=== PATIENT | female | born 1990 | race African-American/Black ===

== ENCOUNTER 2017-08-15 00:22 | Emergency (ER) | payer MEDICAID, OTHER ==
[~2017-08-15] VITALS: Ht 172.7 cm; Wt 91.0 kg
[2017-08-15] MEDS ORDERED: LORAZEPAM 1MG TABLET PO ONE (01:15)
[2017-08-15] MEDS ORDERED: SODIUM CHLORIDE 0.9% 1,000 ML IV ONE (01:30)
[2017-08-15 01:45] LABS: BASOPHILS % 0.7 % (0.0-2.0); HEMOGLOBIN. 14.6 g/dL (12.0-16.0); LYMPHOCYTES % 25.5 % (20.0-50.0); MEAN CORPUSCULAR HEMOGLOBIN 30.4 pg (28.0-32.0); MEAN CORPUSCULAR VOLUME 87.6 fL (81.0-99.0); MEAN PLATELET VOLUME 7.7 fl (7.4-10.4); MONOCYTES % 6.1 % (2.0-8.0); NEUTROPHILS % 66.7 % (40.0-76.0); PLATELET 289 x1000/uL (130-400); RED CELL DISTRIBUTION WIDTH 13.2 % (11.6-14.6)
[2017-08-15 01:48] LABS: CHLORIDE 106 mEq/L (98-107)
[2017-08-15 01:53] LABS: ETHANOL BLOOD 125 mg/dL
[2017-08-15 02:02] LABS: HCG SCREEN NEGATIVE
[2017-08-15 02:06] LABS: CLARITY URINE CLEAR (CLEAR); COLOR URINE YELLOW (YELLOW); KETONES URINE NEGATIVE (NEGATIVE); LEUKOCYTE ESTERASE URINE NEGATIVE (NEGATIVE); NITRITE URINE NEGATIVE (NEGATIVE); OCCULT BLOOD URINE 1+ (NEGATIVE); PROTEIN URINE NEGATIVE (NEGATIVE); SPECIFIC GRAVITY URINE 1.007 (1.005-1.030); UROBILINOGEN URINE 0.2 E.U./dL (0.2-1.0)
[2017-08-15 02:52] LABS: *AMPHETAMINES SCREEN URINE NEGATIVE (NEGATIVE); *BARBITURATES SCREEN URINE NEGATIVE (NEGATIVE); *BENZODIAZEPINES SCREEN URINE NEGATIVE (NEGATIVE)
[2017-08-15 02:53] LABS: *COCAINE SCREEN URINE NEGATIVE (NEGATIVE); METHADONE URINE SCREEN NEGATIVE (NEGATIVE)
[2017-08-15 02:54] LABS: OPIATES URINE SCREEN NEGATIVE (NEGATIVE)
[2017-08-15 02:55] LABS: CANNABINOID URINE SCREEN NEGATIVE (NEGATIVE); PHENCYCLIDINE URINE SCREEN NEGATIVE (NEGATIVE)
[2017-08-15 09:20] VITALS: BP 133/77
== END 2017-08-15 15:02 | disposition home or self-care (01) ==
LOC: ER 00:37 → EDSEX 00:37 → ER 15:02
DX: R45.851 Suicidal ideations (principal); F32.9 Major depressive disorder, single episode, unspecified; Z91.5 Personal history of self-harm
CPT/HCPCS: 36415; 80053; 80305; 80307; 80329; 81003; 82565; 84520; 84703; 85025; 96360; 99285; G0482; J7030; Z7610

== ENCOUNTER 2018-02-05 06:37 | Emergency (ER) | payer MEDICAID, OTHER ==
[~2018-02-05] VITALS: Ht 175.3 cm; Wt 121.5 kg
[2018-02-05] MEDS ORDERED: SODIUM CHLORIDE 0.9% 1,000 ML IV ONE (09:27)
[2018-02-05] MEDS ORDERED: ONDANSETRON HCL 4MG/2ML INJ IV STA (09:27)
[2018-02-05 10:00] LABS: BASOPHILS % 0.6 % (0.0-2.0); EOSINOPHILS % 0.5 % (0.0-5.0); HEMATOCRIT. 38.4 % (36.0-48.0); HEMOGLOBIN. 13.2 g/dL (12.0-16.0); LYMPHOCYTES % 15.1 % (20.0-50.0); MEAN CORPUSCULAR VOLUME 87.5 fL (81.0-99.0); MEAN PLATELET VOLUME 7.5 fl (7.4-10.4); MONOCYTES % 11.9 % (2.0-8.0); NEUTROPHILS % 71.9 % (40.0-76.0); PLATELET 221 x1000/uL (130-400); RED BLOOD CELL COUNT 4.39 mill/uL (4.2-5.4); RED CELL DISTRIBUTION WIDTH 13.3 % (11.6-14.6)
[2018-02-05 10:12] LABS: CHLORIDE 104 mEq/L (98-107)
[2018-02-05 10:15] LABS: CLARITY URINE TURBID (CLEAR); COLOR URINE YELLOW (YELLOW); KETONES URINE 2+ (NEGATIVE); LEUKOCYTE ESTERASE URINE 2+ (NEGATIVE); NITRITE URINE NEGATIVE (NEGATIVE); OCCULT BLOOD URINE TRACE (NEGATIVE); PROTEIN URINE 1+ (NEGATIVE)
[2018-02-05 13:54] VITALS: BP 115/76
== END 2018-02-05 13:56 | disposition home or self-care (01) ==
LOC: ER 09:06
DX: O21.8 Other vomiting complicating pregnancy (principal); R10.9 Unspecified abdominal pain; O26.892 Other specified pregnancy related conditions, second trimester; J02.9 Acute pharyngitis, unspecified; Z3A.17 17 weeks gestation of pregnancy
CPT/HCPCS: 36415; 76815; 80053; 81003; 81025; 83690; 85025; 87804; 96361; 96374; 99285; J2405; J7030

== ENCOUNTER 2018-06-04 00:45 | Inpatient (IN) | payer MEDICAID, OTHER ==
[~2018-06-04] VITALS: Ht 175.3 cm; Wt 125.6 kg
[2018-06-04 03:15] LABS: BASOPHILS % 0.5 % (0.0-2.0); EOSINOPHILS % 0.3 % (0.0-5.0); HEMATOCRIT. 37.2 % (36.0-48.0); HEMOGLOBIN. 12.5 g/dL (12.0-16.0); LYMPHOCYTES % 24.2 % (20.0-50.0); MEAN CORPUSCULAR HEMOGLOBIN 29.2 pg (28.0-32.0); MEAN CORPUSCULAR VOLUME 86.7 fL (81.0-99.0); MONOCYTES % 10.3 % (2.0-8.0); NEUTROPHILS % 64.7 % (40.0-76.0); PLATELET 247 x1000/uL (130-400); RED BLOOD CELL COUNT 4.29 mill/uL (4.2-5.4); RED CELL DISTRIBUTION WIDTH 13.4 % (11.6-14.6)
[2018-06-04 03:15] LABS: CLARITY URINE CLOUDY (CLEAR); COLOR URINE YELLOW (YELLOW); KETONES URINE NEGATIVE (NEGATIVE); LEUKOCYTE ESTERASE URINE 1+ (NEGATIVE); NITRITE URINE NEGATIVE (NEGATIVE); OCCULT BLOOD URINE 2+ (NEGATIVE); PROTEIN URINE 2+ (NEGATIVE); SPECIFIC GRAVITY URINE 1.004 (1.005-1.030); UROBILINOGEN URINE 0.2 E.U./dL (0.2-1.0)
[2018-06-04 03:24] LABS: *AMPHETAMINES SCREEN URINE NEGATIVE (NEGATIVE); *BARBITURATES SCREEN URINE NEGATIVE (NEGATIVE); *BENZODIAZEPINES SCREEN URINE NEGATIVE (NEGATIVE)
[2018-06-04 03:24] LABS: PARTIAL THROMBOPLASTIN TIME 26.1 sec (23.4-31.0); PROTHROMBIN TIME 9.9 sec (9.1-11.1)
[2018-06-04 03:25] LABS: *COCAINE SCREEN URINE NEGATIVE (NEGATIVE); CANNABINOID URINE SCREEN NEGATIVE (NEGATIVE); METHADONE URINE SCREEN NEGATIVE (NEGATIVE); OPIATES URINE SCREEN NEGATIVE (NEGATIVE); PHENCYCLIDINE URINE SCREEN NEGATIVE (NEGATIVE)
[2018-06-04 03:53] LABS: HEPATITIS B SURFACE ANTIGEN NEGATIVE
[2018-06-04] MEDS ORDERED: AMPICILLIN 2,000 MG in SODIUM CHLORIDE 0.9% 100 ML IV NR (07:00)
[2018-06-04] MEDS: LACTATED RINGERS 1,000 ML IV SCH ×3 (07:44→15:50)
[2018-06-04] MEDS: BETAMETHASONE ACET/BETAMET 30 MG/5 ML VIAL IM SCH (07:44)
[2018-06-04] MEDS: AMPICILLIN 1,000 MG in SODIUM CHLORIDE 0.9% 50 ML IV SCH ×4 (12:07→23:53)
[2018-06-05] MEDS: AMPICILLIN 1,000 MG in SODIUM CHLORIDE 0.9% 50 ML IV SCH ×5 (03:31→20:14)
[2018-06-05] MEDS: LACTATED RINGERS 1,000 ML IV SCH ×3 (03:39→20:15)
[2018-06-05] MEDS: BETAMETHASONE ACET/BETAMET 30 MG/5 ML VIAL IM SCH (07:00)
[2018-06-06] MEDS: AMPICILLIN 1,000 MG in SODIUM CHLORIDE 0.9% 50 ML IV SCH ×4 (00:26→16:28)
[2018-06-06] MEDS ORDERED: LACTATED RINGERS 1,000 ML IV SCH (13:30)
[2018-06-06] MEDS ORDERED: DEXT 5%/LR + PITOCIN 20UNITS/L 1,000 ML IV SCH (15:49)
[2018-06-06] MEDS ORDERED: MISOPROSTOL 100MCG TABLET VG PRN ×2 (16:00)
[2018-06-06] MEDS ORDERED: BUTORPHANOL TARTRATE 2 MG/ML VIAL IV PRN (16:00)
[2018-06-06] MEDS ORDERED: METHYLERGONOVINE MALEATE 0.2 MG/ML IM PRN (16:00)
[2018-06-06] MEDS ORDERED: LIDOCAINE HCL 1% 20ML VIAL (Pyxis) INJ INFIL PRN (16:00)
[2018-06-06] MEDS ORDERED: NALOXONE HCL 0.4 MG/ML 1ML VIAL IM PRN (16:00)
[2018-06-06] MEDS ORDERED: CITRIC ACID/SODIUM CITRATE SOLN 30ML UDC PO NR (21:00)
[2018-06-06] MEDS ORDERED: BUPIVACAINE HCL/NS/PF EPIDURAL 100 ML in SODIUM CHLORIDE 0.9% 100 ML EP NR (21:00)
[2018-06-06] MEDS ORDERED: BUPIVACAINE HCL/PF 0.25% (2.5MG/ML) 10ML ONE (21:09)
[2018-06-06] MEDS ORDERED: FENTANYL CITRATE/PF 50MCG/ML 2ML VIAL ONE (21:09)
[2018-06-06] MEDS ORDERED: SODIUM CHLORIDE 0.9% 10ML VIAL ONE (21:09)
[2018-06-06] MEDS ORDERED: BUPIVACAINE HCL/NS/PF EPIDURAL 100 ML EP ONE (21:10)
[2018-06-06] MEDS ORDERED: EPHEDRINE SULFATE 50MG/ML VIAL ONE (21:10)
[2018-06-06] MEDS ORDERED: BUPIVACAINE HCL EP PRN (21:15)
[2018-06-06] MEDS ORDERED: SODIUM CHLORIDE EP PRN (21:15)
[2018-06-07 01:00] VITALS: BP 116/61
[2018-06-07] MEDS ORDERED: GLYCERIN/WITCH HAZEL LEAF MEDICATED PAD TOP PRN ×2 (01:15→07:15)
[2018-06-07] MEDS ORDERED: IBUPROFEN 800MG TABLET PO PRN (01:15)
[2018-06-07] MEDS ORDERED: BENZOCAINE/LANOLIN/ALOE VERA SPRAY TOP PRN ×2 (01:15→07:15)
[2018-06-07] MEDS ORDERED: METHYLERGONOVINE MALEATE 0.2 MG/ML IM PRN (01:15)
[2018-06-07 01:30] VITALS: BP 112/65
[2018-06-07] MEDS: IBUPROFEN 800MG TABLET PO PRN ×2 (02:07→15:49)
[2018-06-07 05:50] VITALS: BP 114/67
[2018-06-07] MEDS ORDERED: DEXT 5%/LR + PITOCIN 20UNITS/L 1,000 ML IV SCH (07:03)
[2018-06-07] MEDS ORDERED: ACETAMINOPHEN WITH CODEINE 300/30MG TABLET PO PRN ×2 (07:15)
[2018-06-07] MEDS ORDERED: IBUPROFEN 400MG TABLET PO PRN (07:15)
[2018-06-07] MEDS ORDERED: BISACODYL 10MG SUPP PR PRN (07:15)
[2018-06-07] MEDS ORDERED: LANOLIN OINT 0.25 GM TUBE TOP PRN (07:15)
[2018-06-07] MEDS: MAGNESIUM/ALUMINUM HYDROXIDE/SIMETHICONE 30ML UDC PO SCH ×4 (07:30→22:42)
[2018-06-07 08:10] VITALS: BP 108/76
[2018-06-07] MEDS: PRENATAL VIT/FE FUMARATE/FA TABLET PO SCH (08:39)
[2018-06-07] MEDS: SIMETHICONE 80MG TABLET CHEW PO SCH ×4 (08:39→22:43)
[2018-06-07 09:35] LABS: BASOPHILS % 0.3 % (0.0-2.0); EOSINOPHILS % 0.1 % (0.0-5.0); HEMATOCRIT. 39.8 % (36.0-48.0); HEMOGLOBIN. 13.1 g/dL (12.0-16.0); LYMPHOCYTES % 14.2 % (20.0-50.0); MEAN CORPUSCULAR VOLUME 87.6 fL (81.0-99.0); MEAN PLATELET VOLUME 7.5 fl (7.4-10.4); MONOCYTES % 7.9 % (2.0-8.0); NEUTROPHILS % 77.5 % (40.0-76.0); PLATELET 274 x1000/uL (130-400); RED BLOOD CELL COUNT 4.54 mill/uL (4.2-5.4); RED CELL DISTRIBUTION WIDTH 13.5 % (11.6-14.6)
[2018-06-07 15:57] VITALS: BP 106/57
[2018-06-07 22:00] VITALS: BP 109/66
[2018-06-08 06:00] VITALS: BP 107/61
[2018-06-08] MEDS: MAGNESIUM/ALUMINUM HYDROXIDE/SIMETHICONE 30ML UDC PO SCH (08:54)
[2018-06-08] MEDS: PRENATAL VIT/FE FUMARATE/FA TABLET PO SCH (08:54)
[2018-06-08] MEDS: SIMETHICONE 80MG TABLET CHEW PO SCH (08:54)
[2018-06-08] MEDS: IBUPROFEN 800MG TABLET PO PRN (08:55)
[2018-06-08 09:00] VITALS: BP 125/77
[2018-06-08 09:56] VITALS: BP 125/77
== END 2018-06-08 11:15 | disposition home or self-care (01) | DRG 560 ==
LOC: OBSVTOIN 00:45 → 8 EST LDRP 00:45 → 8EST 06-07 00:59
PROVIDERS: ADMIT Obstetrics & Gynecology; ATTEND Obstetrics & Gynecology
PROC: 10D07Z6 Extraction of Products of Conception, Vacuum, Via Natural or Artificial Opening (ICD-10-PCS; principal; 2018-06-06)
PROC: 3E0R3BZ Introduction of Anesthetic Agent into Spinal Canal, Percutaneous Approach (ICD-10-PCS; 2018-06-06)
PROC: 00HU33Z Insertion of Infusion Device into Spinal Canal, Percutaneous Approach (ICD-10-PCS; 2018-06-06)
DX: O42.913 Preterm premature rupture of membranes, unspecified as to length of time between rupture and onset of labor, third trimester (principal); E66.01 Morbid (severe) obesity due to excess calories; O99.344 Other mental disorders complicating childbirth; F32.9 Major depressive disorder, single episode, unspecified; O99.214 Obesity complicating childbirth; Z3A.35 35 weeks gestation of pregnancy; Z37.0 Single live birth
CPT/HCPCS: 36415; 76805; 76818; 80305; 86592; 86593; 86703; 86762; 86780; 86850; 86900; 87340; 99281; J0290; J0702; J2590; J3010; J3490; J7050

== ENCOUNTER 2022-04-03 14:21 | Emergency (ER) | payer OTHER, MEDICAID ==
[~2022-04-03] VITALS: Ht 175.3 cm; Wt 137.0 kg
[2022-04-03 14:26] VITALS: BP 115/74
[2022-04-03] MEDS ORDERED: IBUP-2030 MT (15:37)
== END 2022-04-03 16:41 | disposition home or self-care (01) ==
LOC: ER 14:21
DX: S93.491A Sprain of other ligament of right ankle, initial encounter (principal); W01.0XXA Fall on same level from slipping, tripping and stumbling without subsequent striking against object, initial encounter; Y93.89 Activity, other specified; Y92.012 Bathroom of single-family (private) house as the place of occurrence of the external cause
CPT/HCPCS: 73610; 73630; 99284

== ENCOUNTER 2023-04-24 13:18 | Emergency (ER) | payer MEDICAID, OTHER ==
[~2023-04-24] VITALS: Ht 175.3 cm; Wt 130.0 kg
[~2023-04-24 13:18] MED LIST: IBUP-2030 MT
[2023-04-24 13:27] VITALS: BP 142/92; PULSE 98; RESP 18; TEMP 97.5; O2SAT 99
[2023-04-24 14:03] LABS: CLARITY URINE CLEAR (CLEAR); COLOR URINE YELLOW (YELLOW); GLUCOSE URINE NEGATIVE (NEGATIVE); KETONES URINE NEGATIVE (NEGATIVE); LEUKOCYTE ESTERASE URINE TRACE (NEGATIVE); NITRITE URINE NEGATIVE (NEGATIVE); OCCULT BLOOD URINE TRACE (NEGATIVE); PH URINE 8.5 (4.5-8.0); PROTEIN URINE NEGATIVE (NEGATIVE); SPECIFIC GRAVITY URINE 1.021 (1.005-1.030)
[2023-04-24 14:50] LABS: RBC URINE 0-2 /hpf (0-2); SQUAMOUS EPITHELIAL CELL URINE 2+ /lpf (RARE/1+); WBC URINE 0-2 /hpf (0-2)
[2023-04-24 14:51] LABS: BACTERIA URINE TRACE
[2023-04-24 14:57] LABS: BASOPHILS % 0.5 % (0.0-2.0); HEMATOCRIT. 40.7 % (36.0-48.0); HEMOGLOBIN. 13.4 g/dL (12.0-16.0); LYMPHOCYTES % 27.4 % (20.0-50.0); MEAN CORPUSCULAR HEMOGLOBIN 29.7 pg (28.0-32.0); MEAN CORPUSCULAR VOLUME 89.9 fL (81.0-99.0); MEAN PLATELET VOLUME 7.5 fl (7.4-10.4); MONOCYTES % 7.2 % (2.0-8.0); NEUTROPHILS % 62.9 % (40.0-76.0); PLATELET 318 x1000/uL (130-400); RED BLOOD CELL COUNT 4.52 mill/uL (4.2-5.4); RED CELL DISTRIBUTION WIDTH 13.2 % (11.6-14.6); WHITE BLOOD COUNT 8.6 x1000/uL (4.5-11.0)
[2023-04-24 15:01] LABS: ALANINE AMINOTRANSFERASE 12 IU/L (10-49); ASPARTATE AMINOTRANSFERASE 17 IU/L (<34); BILIRUBIN TOTAL 0.5 mg/dL (0.1-1.0); CALCIUM 9.2 mg/dL (8.7-10.4); CARBON DIOXIDE 28 mEq/L (21-32); CHLORIDE 103 mEq/L (98-107); CREATININE 0.6 mg/dL (0.6-1.0); GLUCOSE 89 mg/dL (70-105); PROTEIN TOTAL 7.8 g/dL (6.0-8.3); SODIUM 136 mEq/L (136-145); UREA NITROGEN BLOOD 7 mg/dL (9-23)
[2023-04-24 15:22] LABS: HCG SCREEN POSITIVE
[2023-04-24] MEDS ORDERED: NITR-87 MT (17:18)
== END 2023-04-24 18:23 | disposition home or self-care (01) ==
LOC: ER 13:32
DX: O34.11 Maternal care for benign tumor of corpus uteri, first trimester (principal); Z3A.01 Less than 8 weeks gestation of pregnancy
CPT/HCPCS: 36415; 76801; 80053; 81003; 81025; 84702; 84703; 85025; 86850; 86900; 99284

== ENCOUNTER 2023-07-26 11:28 | Emergency (ER) | payer OTHER ==
[~2023-07-26] VITALS: Ht 175.3 cm; Wt 135.0 kg
[~2023-07-26 11:28] MED LIST changes: +NITR-87 MT
[2023-07-26 11:34] VITALS: O2SAT 97
[2023-07-26] MEDS ORDERED: IBUP-2029 MT (12:54)
[2023-07-26] MEDS: DEXAMETHASONE 1MG TABLET PO ONE (12:56)
[2023-07-26] MEDS: DEXAMETHASONE 4MG TABLET PO SCH (13:16)
[2023-07-26] MEDS ORDERED: AMOX-494 MT (13:54)
[2023-07-26 14:30] VITALS: BP 160/95; PULSE 116; RESP 16; TEMP 99.1
== END 2023-07-26 14:37 | disposition home or self-care (01) ==
LOC: ER 12:04
DX: J02.9 Acute pharyngitis, unspecified (principal); Z20.822 Contact with and (suspected) exposure to COVID-19
CPT/HCPCS: 99284; 71046; 87426; 87430; 87070; 87804 ×2; J8540